=== PATIENT | female | born 1990 | race African-American/Black ===

== ENCOUNTER 2017-02-18 15:04 | Emergency (ER) | payer MEDICAID ==
[~2017-02-18] VITALS: Ht 162.6 cm; Wt 89.4 kg
[2017-02-18] MEDS ORDERED: SODIUM CHLORIDE 0.9% 1,000 ML IVB ONE (15:29)
[2017-02-18] MEDS ORDERED: HYDROmorphone HCL 2 MG/ML VL IV ONE (15:30)
[2017-02-18] MEDS ORDERED: METOCLOPRAMIDE HCL 5MG/ml INJ 2ml VIAL IV ONE (15:30)
[2017-02-18 16:03] LABS: Albumin 2.6 g/dL (3.4-5.0); BUN/Creatinine Ratio 4.3; Bilirubin, Total 0.5 mg/dL (0.2-1.0); Calcium 8.7 mg/dL (8.5-10.1); Potassium 3.1 mmol/L (3.5-5.1); Total Protein 7.2 g/dL (6.4-8.2)
[2017-02-18 17:25] VITALS: BP 113/56
[2017-02-18 18:11] LABS: Basophils # (auto) 0 uL; Basophils % (auto) 0.1 % (0.0-2.0); CONDITION Y; DEFINITIVE SEE PRINTOUT; Eosinophils # (auto) 0 uL; Eosinophils % (auto) 0.1 % (0.0-7.0); Hematocrit 35.4 % (36.0-46.0); Hemoglobin 11.6 g/dL (12.2-16.2); Lymphocytes # (auto) 1.3 uL; Lymphocytes % (auto) 12.7 % (10.0-50.0); Mean Corpuscular Hemoglobin 26.7 pg (28.0-32.0); Mean Corpuscular Hgb Conc. 32.8 g/dL (32.0-36.0); Mean Corpuscular Volume 81.4 fL (80.0-100.0); Monocytes # (auto) 0.4 uL; Monocytes % (auto) 3.5 % (0.0-12.0); Neutrophils # (auto) 8.6 uL; Neutrophils % (auto) 83.6 % (37.0-80.0); Platelet Count (auto) 340 10^3/uL (140-450); White Blood Cell 10.3 10^3/uL (4.4-10.8)
== END 2017-02-18 18:03 | disposition home or self-care (01) ==
LOC: ER 15:06
DX: O20.0 Threatened abortion (principal); O26.892 Other specified pregnancy related conditions, second trimester; Z3A.15 15 weeks gestation of pregnancy; K80.20 Calculus of gallbladder without cholecystitis without obstruction; O30.002 Twin pregnancy, unspecified number of placenta and unspecified number of amniotic sacs, second trimester
CPT/HCPCS: 36415; 76705; 76805; 80053; 84702; 85025; 94761; 96361; 96374; 96375; 99285; J1170; J2765; J7030

== ENCOUNTER 2017-02-19 06:28 | Emergency (ER) | payer MEDICAID ==
[~2017-02-19] VITALS: Ht 162.6 cm; Wt 89.4 kg
[2017-02-19] MEDS ORDERED: SODIUM CHLORIDE 0.9% 1,000 ML IVB ONE (06:58)
[2017-02-19] MEDS ORDERED: METOCLOPRAMIDE HCL 5MG/ml INJ 2ml VIAL IV ONE (07:00)
[2017-02-19] MEDS ORDERED: HYDROmorphone HCL 2 MG/ML VL IV ONE (07:00)
[2017-02-19 07:10] VITALS: BP 140/92
[2017-02-19 07:54] LABS: Basophils # (auto) 0 uL; Basophils % (auto) 0.1 % (0.0-2.0); CONDITION Y; DEFINITIVE SEE PRINTOUT; Eosinophils # (auto) 0 uL; Eosinophils % (auto) 0.2 % (0.0-7.0); Hematocrit 32.8 % (36.0-46.0); Hemoglobin 10.9 g/dL (12.2-16.2); Lymphocytes # (auto) 1.3 uL; Lymphocytes % (auto) 11.6 % (10.0-50.0); Mean Corpuscular Hemoglobin 26.8 pg (28.0-32.0); Mean Corpuscular Hgb Conc. 33.2 g/dL (32.0-36.0); Mean Corpuscular Volume 80.8 fL (80.0-100.0); Mean Platelet Volume 8.5 fL (7.4-10.4); Monocytes # (auto) 0.4 uL; Monocytes % (auto) 3.5 % (0.0-12.0); Neutrophils # (auto) 9.6 uL; Neutrophils % (auto) 84.6 % (37.0-80.0); Platelet Count (auto) 377 10^3/uL (140-450); Red Cell Distribution Width 17.1 % (11.6-16.0); White Blood Cell 11.3 10^3/uL (4.4-10.8)
[2017-02-19 08:14] LABS: Albumin 2.7 g/dL (3.4-5.0); BUN/Creatinine Ratio 6.5; Calcium 8.7 mg/dL (8.5-10.1); Potassium 3.2 mmol/L (3.5-5.1)
[2017-02-19 08:17] LABS: Bilirubin, Total 0.6 mg/dL (0.2-1.0); Total Protein 7.2 g/dL (6.4-8.2)
== END 2017-02-19 10:41 | disposition home or self-care (01) ==
LOC: ER 06:28
DX: O99.612 Diseases of the digestive system complicating pregnancy, second trimester (principal); K80.20 Calculus of gallbladder without cholecystitis without obstruction; O30.002 Twin pregnancy, unspecified number of placenta and unspecified number of amniotic sacs, second trimester; Z3A.15 15 weeks gestation of pregnancy
CPT/HCPCS: 36415; 80053; 84702; 85025; 94761; 96361; 96374; 96375; 99284; J1170; J2765

== ENCOUNTER 2017-03-27 16:04 | Emergency (ER) | payer MEDICAID ==
[2017-03-27 16:23] VITALS: BP 128/81
[2017-03-27 17:24] LABS: Basophils # (auto) 0 uL; Basophils % (auto) 0.1 % (0.0-2.0); CONDITION Y; Eosinophils # (auto) 0 uL; Eosinophils % (auto) 0.2 % (0.0-7.0); Hematocrit 35.2 % (36.0-46.0); Hemoglobin 11.8 g/dL (12.2-16.2); Lymphocytes # (auto) 1.4 uL; Lymphocytes % (auto) 10.7 % (10.0-50.0); Mean Corpuscular Hemoglobin 27.3 pg (28.0-32.0); Mean Corpuscular Hgb Conc. 33.6 g/dL (32.0-36.0); Mean Corpuscular Volume 81.1 fL (80.0-100.0); Mean Platelet Volume 7.8 fL (6.9-10.8); Monocytes # (auto) 0.4 uL; Monocytes % (auto) 3.5 % (0.0-12.0); Neutrophils # (auto) 10.8 uL; Neutrophils % (auto) 85.5 % (37.0-80.0); Platelet Count (auto) 409 10^3/uL (140-450); White Blood Cell 12.7 10^3/uL (4.4-10.8)
[2017-03-27 17:28] LABS: Albumin 2.5 g/dL (3.4-5.0); BUN/Creatinine Ratio 5.4; Bilirubin, Total 0.4 mg/dL (0.2-1.0); Calcium 9.1 mg/dL (8.5-10.1); Potassium 4.1 mmol/L (3.5-5.1); Total Protein 7.4 g/dL (6.4-8.2)
[2017-03-27 18:01] LABS: Urine RBC None Seen /hpf (0 - 4)
[2017-03-27 18:27] LABS: Urine Bilirubin Negative (Negative); Urine Blood Negative /uL (Negative); Urine Color Yellow (Yellow); Urine Glucose Normal (Normal); Urine Ketone 2+ (Negative); Urine Mucus MANY (None Seen); Urine Nitrite Negative (Negative); Urine Squamous Epithelial Cell MANY /hpf (<5); Urine Urobilinogen Normal (Negative)
== END 2017-03-27 22:21 | disposition left against medical advice (07) ==
LOC: ER 16:06
DX: R10.9 Unspecified abdominal pain (principal); Z53.21 Procedure and treatment not carried out due to patient leaving prior to being seen by health care provider
CPT/HCPCS: 36415; 80053; 81001; 84702; 85025

== ENCOUNTER 2017-03-29 10:45 | Observation (INO) | payer MEDICAID ==
[2017-03-29] MEDS ORDERED: LACTATED RINGER'S 2,000 ML IV ONE (11:00)
[2017-03-29] MEDS ORDERED: PROM25TA5 PO (12:51)
[2017-03-29] MEDS ORDERED: PRO625LQ GT (12:51)
[2017-03-29] MEDS ORDERED: PREN-96 PO (12:53)
[2017-03-29 13:54] LABS: Urine RBC None Seen /hpf (0 - 4)
[2017-03-29 14:29] LABS: Urine Bilirubin Negative (Negative); Urine Blood Negative /uL (Negative); Urine Color Yellow (Yellow); Urine Glucose Normal (Normal); Urine Urobilinogen Normal (Negative)
[2017-03-29 14:30] LABS: Urine Ketone 2+ (Negative); Urine Nitrite Negative (Negative)
[2017-03-29 14:31] LABS: Urine Amorphous Sediment Few /hpf; Urine Squamous Epithelial Cell MANY /hpf (<5)
== END 2017-03-29 14:25 | disposition home or self-care (01) | DRG 566 ==
LOC: LDRP 10:45
PROVIDERS: ADMIT Obstetrics & Gynecology; ATTEND Obstetrics & Gynecology
DX: O21.1 Hyperemesis gravidarum with metabolic disturbance (principal); O26.892 Other specified pregnancy related conditions, second trimester; R10.30 Lower abdominal pain, unspecified; Z3A.20 20 weeks gestation of pregnancy
CPT/HCPCS: 59025; 80307; 81001; 81002; G0378; 96365; 96366

== ENCOUNTER 2017-04-03 10:30 | Observation (INO) | payer MEDICAID ==
[~2017-04-03 10:30] MED LIST: PREN-96 PO; PROM25TA5 PO
[2017-04-03] MEDS ORDERED: FAMOTIDINE (10MG/ML) 2ML VL IV ONE (11:30)
[2017-04-03] MEDS ORDERED: ONDANSETRON HCL 4 MG/2 ML VIAL IV PRN (11:30)
[2017-04-03] MEDS ORDERED: LACTATED RINGER'S 2,000 ML IV ONE (11:30)
[2017-04-03] MEDS ORDERED: LACTATED RINGER'S 1,000 ML IV ONE (11:30)
[2017-04-03 12:04] LABS: Albumin 2.5 g/dL (3.4-5.0); Bilirubin, Total 0.6 mg/dL (0.2-1.0); Calcium 8.9 mg/dL (8.5-10.1); Potassium 3.4 mmol/L (3.5-5.1); Total Protein 7.4 g/dL (6.4-8.2)
== END 2017-04-03 17:00 | disposition home or self-care (01) | DRG 566 ==
LOC: LDRP 10:30
PROVIDERS: ADMIT Specialist; ATTEND Specialist
DX: O21.2 Late vomiting of pregnancy (principal); O26.892 Other specified pregnancy related conditions, second trimester; O30.002 Twin pregnancy, unspecified number of placenta and unspecified number of amniotic sacs, second trimester; R53.1 Weakness; Z3A.21 21 weeks gestation of pregnancy
CPT/HCPCS: 36415; 59025; 80053; 81002; 96361; 96374; 96375; G0378; J2405; J3490; 96366

== ENCOUNTER 2017-04-10 11:15 | Observation (INO) | payer MEDICAID ==
[~2017-04-10] VITALS: Ht 30.5 cm; Wt 0.5 kg
[2017-04-10] MEDS: LACTATED RINGER'S 1,000 ML IV ONE (12:30)
[2017-04-10] MEDS: ONDANSETRON HCL 4 MG/2 ML VIAL IV ONE (12:31)
== END 2017-04-10 13:22 | disposition home or self-care (01) | DRG 566 ==
LOC: LDRP 11:15
PROVIDERS: ADMIT Specialist; ATTEND Specialist
DX: O21.2 Late vomiting of pregnancy (principal); O30.002 Twin pregnancy, unspecified number of placenta and unspecified number of amniotic sacs, second trimester; Z3A.22 22 weeks gestation of pregnancy
CPT/HCPCS: 59025; 81002; 96361; 96374; G0378; J2405; 96366

== ENCOUNTER 2017-04-14 07:50 | Observation (INO) | payer MEDICAID ==
[~2017-04-14] VITALS: Ht 162.6 cm; Wt 83.0 kg
[2017-04-14] MEDS ORDERED: CEFTRIAXONE SODIUM 2 GM in D5W 5% 50 ML IV ONE (08:45)
[2017-04-14] MEDS ORDERED: LACTATED RINGER'S 1,000 ML IV ONE (08:45)
[2017-04-14] MEDS ORDERED: ONDANSETRON HCL 4 MG/2 ML VIAL IV ONE (08:45)
[2017-04-14] MEDS ORDERED: SODIUM CHLORIDE 0.9% 1,000 ML IV ONE (08:45)
[2017-04-14 09:03] LABS: Basophils # (auto) 0 uL; Basophils % (auto) 0.3 % (0.0-2.0); Eosinophils # (auto) 0 uL; Hemoglobin 10.9 g/dL (12.2-16.2); Lymphocytes # (auto) 1.7 uL; Lymphocytes % (auto) 14.9 % (10.0-50.0)
[2017-04-14 09:04] LABS: Eosinophils % (auto) 0.3 % (0.0-7.0); Hematocrit 34.1 % (36.0-46.0); Mean Corpuscular Hemoglobin 26.6 pg (28.0-32.0); Mean Corpuscular Hgb Conc. 32.1 g/dL (32.0-36.0); Mean Corpuscular Volume 82.8 fL (80.0-100.0); Monocytes # (auto) 0.7 uL; Monocytes % (auto) 5.9 % (0.0-12.0); Neutrophils # (auto) 8.9 uL; Neutrophils % (auto) 78.6 % (37.0-80.0); Platelet Count (auto) 383 10^3/uL (140-450); Red Cell Distribution Width 15.5 % (11.8-14.3); White Blood Cell 11.3 10^3/uL (4.4-10.8)
[2017-04-14] MEDS: LACTATED RINGER'S 1,000 ML IV ONE ×2 (09:06→10:06)
[2017-04-14 09:24] LABS: Albumin 2.4 g/dL (3.4-5.0); BUN/Creatinine Ratio 3.4; Calcium 9.3 mg/dL (8.5-10.1); Potassium 3.7 mmol/L (3.5-5.1)
[2017-04-14 09:33] LABS: Bilirubin, Total 0.4 mg/dL (0.2-1.0); Total Protein 6.9 g/dL (6.4-8.2)
== END 2017-04-14 12:41 | disposition home or self-care (01) | DRG 566 ==
LOC: LDRP 07:50
PROVIDERS: ADMIT Specialist; ATTEND Specialist
DX: O23.42 Unspecified infection of urinary tract in pregnancy, second trimester (principal); O30.002 Twin pregnancy, unspecified number of placenta and unspecified number of amniotic sacs, second trimester; O21.2 Late vomiting of pregnancy; Z3A.22 22 weeks gestation of pregnancy
CPT/HCPCS: 36415; 59025; 80053; 81002; 85025; 87086; 96361; 96365; 96375; G0378; J0696; J2405; J7030; 96366; J7060